=== PATIENT | male | born 2000 | race African-American/Black ===

== ENCOUNTER 2021-02-03 18:02 | Inpatient (IN) | payer OTHER ==
[2021-02-03 21:43] LABS: BASO % 0.5 % (0-2.0); EOS % 3.8 % (0-4.5); HEMATOCRIT 46.3 % (35.4-49); HEMOGLOBIN 15.5 GM/dL (11.7-16.9); LYMPH % 27.6 % (8-40); MCH 30.1 pg (25.7-33.7); MCHC 33.5 g/dl (32.0-35.9); MEAN CELL VOLUME 89.6 fl (80-96); MEAN PLT VOLUME 9.6 fl (7.5-11.1); MONO % 6.8 % (3.8-10.2); NEUT % 61.3 % (42.8-82.8); PLATELET COUNT 246 10^3/uL (134-434); RBC 5.17 M/mm3 (4.00-5.60); RDW 13.3 % (11.9-15.9); WHITE BLOOD COUNT 5.5 K/mm3 (4.0-10.0)
[2021-02-03 22:02] LABS: CALCIUM 9.1 mg/dL (8.5-10.1)
[2021-02-03 22:03] LABS: ALBUMIN 3.8 g/dl (3.4-5.0); BLOOD UREA NITROGEN 4.8 mg/dL (7-18)
[2021-02-03 22:08] LABS: BILIRUBIN,TOTAL 0.5 mg/dL (0.2-1); TOT PROT 7.5 g/dl (6.4-8.2)
[2021-02-04] MEDS ORDERED: ALBUTEROL SO4 2.5/IPRATROPIUM 0.5 INH SOL 3 ML VIAL.NEB. NEB ONE (06:26)
[2021-02-04 07:05] LABS: COCAINE, UR NEGATIVE (NEGATIVE); OPIATES, URI NEGATIVE (NEGATIVE); URINE BENZODIAZEPINES NEGATIVE (NEGATIVE)
[2021-02-04 07:06] LABS: METHADONE, UR NEGATIVE (NEGATIVE); PHENCYCLIDINE,URINE NEGATIVE (NEGATIVE); URINE AMPHETAMINES NEGATIVE (NEGATIVE); URINE BARBITURATES NEGATIVE (NEGATIVE)
[2021-02-04] MEDS ORDERED: SERTRALINE HCL 50 MG TABLET (FP) ONE (09:24)
[2021-02-04] MEDS: SERTRALINE HCL 50 MG TABLET (FP) PO SCH (09:31)
[2021-02-05] MEDS ORDERED: SERTRALINE HCL 50 MG TABLET (FP) ONE (16:52)
[2021-02-05] MEDS: SERTRALINE HCL 50 MG TABLET (FP) PO SCH (16:55)
[2021-02-06 04:29] VITALS: BMI 30.4
[2021-02-06] MEDS: SERTRALINE HCL 50 MG TABLET (FP) PO SCH (10:44)
[2021-02-06 15:52] LABS: HEMOGLOBIN 14.6 GM/dL (11.7-16.9); MCH 30.5 pg (25.7-33.7); MEAN CELL VOLUME 89.5 fl (80-96); MEAN PLT VOLUME 9.7 fl (7.5-11.1); PLATELET COUNT 261 10^3/uL (134-434); RDW 13.7 % (11.9-15.9); WHITE BLOOD COUNT 5.5 K/mm3 (4.0-10.0)
[2021-02-06 16:05] LABS: CHLORIDE 106 mmol/L (98-107); SODIUM 140 mmol/L (136-145)
[2021-02-06 16:08] LABS: ANION GAP 7 MMOL/L (8-16); CALCIUM 9.1 mg/dL (8.5-10.1); CO2 27 mmol/L (21-32)
[2021-02-06 16:09] LABS: ALBUMIN 3.7 g/dl (3.4-5.0); GLUCOSE,RANDOM 108 mg/dL (74-106)
[2021-02-06 16:12] LABS: BLOOD UREA NITROGEN 6.4 mg/dL (7-18); SGOT/AST 18 U/L (15-37); SGPT/ALT 36 U/L (13-61)
[2021-02-06 16:13] LABS: BILIRUBIN,TOTAL 0.4 mg/dL (0.2-1); TOT PROT 6.9 g/dl (6.4-8.2)
[2021-02-06 16:15] LABS: ALK PHOS 82 U/L (45-117)
[2021-02-07] MEDS ORDERED: MELATONIN 5 MG TABLETS PO ONE (00:24)
[2021-02-07] MEDS: SERTRALINE HCL 50 MG TABLET (FP) PO SCH (09:37)
[2021-02-07 09:40] LABS: HEMATOCRIT 42.2 % (35.4-49); HEMOGLOBIN 14.3 GM/dL (11.7-16.9); MCHC 33.8 g/dl (32.0-35.9); MEAN CELL VOLUME 88.6 fl (80-96); MEAN PLT VOLUME 8.9 fl (7.5-11.1); PLATELET COUNT 229 10^3/uL (134-434); RBC 4.77 M/mm3 (4.00-5.60); RDW 13.4 % (11.9-15.9)
[2021-02-07 10:04] LABS: CHLORIDE 106 mmol/L (98-107); SODIUM 140 mmol/L (136-145)
[2021-02-07 10:07] LABS: ANION GAP 9 MMOL/L (8-16); BLOOD UREA NITROGEN 7.3 mg/dL (7-18); CALCIUM 9.2 mg/dL (8.5-10.1); CO2 25 mmol/L (21-32)
[2021-02-07 10:08] LABS: GLUCOSE,RANDOM 106 mg/dL (74-106)
[2021-02-07 10:11] LABS: PHOSPHOROUS 3.3 mg/dL (2.5-4.9)
[2021-02-07 17:39] LABS: CHOLESTEROL 162 mg/dL (50-200)
[2021-02-07 17:40] LABS: LDL CHOLESTEROL (ONLY SJRH) 107 mg/dL (5-100); TRIGLYCERIDES 62 mg/dL (0-150)
[2021-02-07 17:42] LABS: HDL CHOLESTEROL 34 mg/dL (40-60)
[2021-02-07] MEDS: MELATONIN 5 MG TABLETS PO PRN (21:11)
[2021-02-08 09:19] LABS: HEMATOCRIT 41.3 % (35.4-49); HEMOGLOBIN 14.3 GM/dL (11.7-16.9); MCH 30.5 pg (25.7-33.7); MCHC 34.5 g/dl (32.0-35.9); MEAN CELL VOLUME 88.5 fl (80-96); MEAN PLT VOLUME 9.4 fl (7.5-11.1); PLATELET COUNT 231 10^3/uL (134-434); RBC 4.66 M/mm3 (4.00-5.60); RDW 13.4 % (11.9-15.9); WHITE BLOOD COUNT 5.2 K/mm3 (4.0-10.0)
[2021-02-08 10:13] LABS: CALCIUM 8.9 mg/dL (8.5-10.1)
[2021-02-08 10:17] LABS: CREATININE 0.9 mg/dL (0.55-1.3)
[2021-02-08] MEDS: SERTRALINE HCL 50 MG TABLET (FP) PO SCH (10:55)
[2021-02-08] MEDS: MELATONIN 5 MG TABLETS PO PRN (21:02)
[2021-02-09] MEDS: SERTRALINE HCL 50 MG TABLET (FP) PO SCH (11:06)
[2021-02-09 14:16] VITALS: BP 134/87; PULSE 84; TEMP 97.6
== END 2021-02-09 17:17 | DRG 918 ==
LOC: JER 18:02 → JERBED 02-05 21:20 → J8W 02-06 01:49 → OBSVTOIN 02-07 16:14
PROVIDERS: ADMIT Internal Medicine; ATTEND Internal Medicine
DX: T54.92XA Toxic effect of unspecified corrosive substance, intentional self-harm, initial encounter (principal); F32.2 Major depressive disorder, single episode, severe without psychotic features; Y92.89 Other specified places as the place of occurrence of the external cause
CPT/HCPCS: 36415; 80048; 80053; 80061; 80307; 82550; 83036; 83735; 84100; 84443; 84484; 84703; 85025; 85027; 93005; 93010; 93306-TC; 99284-25; 99285-25; C9803; G0378; U0003; U0005